=== PATIENT | male | born 1950 | race Caucasian/White ===

== ENCOUNTER 2019-07-23 20:00 | Inpatient (IN) ==
--- NOTE | 2019-07-23 21:23 | Diag Imaging Result Doc PS360 ---
EXAM: CT HEAD W/O CONTRAST INDICATION: R hand and facial numbness, diff standing. TECHNIQUE: This exam was performed using automated exposure control, adjustment of mA or kV according to patient size, and/or use of iterative reconstruction technique. COMPARISON: 06/01/2018 FINDINGS: There is a small chronic lacunar infarct involving the left cerebellar hemisphere. There is no definite acute infarct given the limited sensitivity of CT versus MRI. There is no discrete intracranial mass, mass effect, or intracranial hemorrhage. The surrounding soft tissues and bony structures are essentially unremarkable. IMPRESSION: Stable CT head with no definite acute intracranial pathology by CT. Electronically signed by Albert De Luna 07/23/2019 9:21 PM
[2019-07-23 21:36] LABS: BASO# 0.06 X1000 (0.0-0.2); BASO% 0.6 % (0.0-0.8); EOS# 0.48 X1000 (0.0-0.7); EOS% 4.9 % (0.0-10.0); HEMATOCRIT 41.8 % (42.0-52.0); HEMOGLOBIN 14.2 g/dL (14.0-18.0); IMM GRAN# 0.01 X1000 (0.0-0.04); IMM GRAN% 0.1 % (0.0-0.5); LYMPH# 3.15 X1000 (1.2-3.4); LYMPH% 31.9 % (20.5-51.1); MCH 32.9 PG (27-31); MCV 96.8 FL (81-99); MONO# 1.76 X1000 (0.11-0.59); MONO% 17.8 % (1.7-9.3); MPV 11.1 FL (7.4-10.4); NEUT# 4.43 X1000 (1.4-6.5); NEUT% 44.7 % (42.2-75.2); PLT 264 X1000 (130-400); RBC 4.32 XMIL (4.7-6.1); RDW 13.1 % (11.5-14.5); WBC 9.89 X1000 (4.8-10.8)
[2019-07-23 21:51] LABS: AGAP 14; ALBUMIN 4.4 g/dL (3.5-5.0); ALKALINE PHOSPHATASE 94 U/L (32-122); BUN 22 mg/dL (8-22); CALCIUM 9.2 mg/dL (8.8-10.2); CHLORIDE 108 mmol/L (98-107); COSMO 286; ESTIMATED GFR > 60; GLUCOSE 85 mg/dL (70-104); GOT 39 U/L (10-34); GPT 59 U/L (10-44); INR 1.1; POTASSIUM 4.1 mmol/L (3.5-5.1); PROTIME 14.8 Seconds (11.0-16.0); SODIUM 142 mmol/L (136-145); TCO2 20 mmol/L (25-35); TOTAL PROTEIN 7.3 g/dL (6.3-8.3)
[2019-07-23 21:52] LABS: PTT 30.6 Seconds (22.3-41.8)
--- NOTE | 2019-07-23 23:34 | EKG Report ---
Test Performed on : 07/23/2019 9:01:15 PM Test Reason : stroke symptoms Blood Pressure : / mmHG Vent. Rate : 053 BPM Atrial Rate : 053 BPM P-R Int : 158 ms QRS Dur : 092 ms QT Int : 454 ms P-R-T Axes : 008 -11 018 degrees QTc Int : 426 ms Sinus bradycardia. Minimal voltage criteria for LVH, may be normal variant Borderline ECG When compared with ECG of 01-JUN-2018 12:40, premature ventricular complexes. are no longer present Unconfirmed Result
[2019-07-24] MEDS ORDERED: RESTORIL PO ONE (02:12)
[2019-07-24] MEDS: NS 1,000 ML IV SCH ×3 (05:00→20:22)
--- NOTE | 2019-07-24 05:15 | PROVIDER DOCUMENTATION ---
This chart was entered by Shannon Marroquin Scribe, acting as scribe for Divina Morales DO. HPI-Neurological Disorder - General Chief Complaint: Stroke-Like Symptoms Stated Complaint: FACE NUMB, CAN'T STAND Time Seen by Provider: 07/23/19 20:15 Source: patient Allergies/Adverse Reactions: Patient Allergies Allergy/AdvReac Type Severity Reaction Status Date / Time No Known Allergies Allergy Verified 07/23/19 20:09 Home Medications: Home Medication List Medication Instructions Recorded Confirmed Last Taken Type Bupropion [Wellbutrin] 150 mg PO QAM 06/01/18 06/01/18 Unknown History Clopidogrel Bisulfate [Plavix] 75 mg PO DAILY 06/01/18 06/01/18 Unknown History Metoprolol [Lopressor] 25 mg PO BID 06/01/18 06/01/18 Unknown History Niacin 500 mg PO DAILY 06/01/18 06/01/18 Unknown History PRAVAstatin [Pravachol] 80 mg PO DAILY 06/01/18 06/01/18 Unknown History Tamsulosin HCl 0.4 mg PO DAILY 06/01/18 06/01/18 Unknown History Temazepam 30 mg PO HS 06/01/18 06/01/18 Unknown History Aspirin 325 mg PO DAILY tablet 06/02/18 Unknown Rx - History of Present Illness-Neuro Nature of Presenting Problem: pt is a 68 yr old male presenting with resolved complaint of right facial numbness and dizziness. He also states visual changes but is unable to specify and does not know if it was one or both eyes. 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 pt denies any headache, slurred speech, no other complaints. He states multiple previous "TIAs". 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 denies: impaired speech, facial droop Character of Altered Mental Status: reports: N/A Any recent trauma/injury?: reports: none Character of Deficits: reports: altered sensation (right face) New weakness or altered sensation location:: reports: right facial Cognitive Baseline: alert, oriented x3 Gait Baseline: walks without assistance Associated Symptoms: reports: dizziness. denies: headache, decreased ability to walk or stand, numbness in legs/feet, slurred speech, tingling in legs/feet, trouble walking Similar Symptoms Previously?: No Recently seen or treated by another doctor?: No Review of Systems - Adult - REVIEW OF SYSTEMS - ADULT Constitutional: denies: fever, fatique Eyes: denies: blurred vision, double vision Ears, Nose, Mouth & Throat: denies: ear pain, sinus problem, throat pain Cardiovascular: denies: chest pain, palpitations, syncope Respiratory: denies: cough, shortness of breath Gastrointestinal: denies: abdominal pain, diarrhea, nausea, vomiting Genitourinary: reports: no symptoms reported Musculoskeletal: denies: frequent leg cramps, muscle aches, muscle weakness Integumentary: reports: no symptoms reported Neurological: reports: dizziness/vertigo, numbness (right face). denies: headache/migraines, seizure, slurred speech, syncope Psychiatric: reports: no symptoms reported Endocrine: reports: no symptoms reported Hematologic/Lymphatic: reports: no symptoms reported Allergic/Immunologic: reports: no symptoms reported All Other Systems: Reviewed and Negative Past History - Adult - PAST MEDICAL HISTORY-ADULT Review of Records: reports: Nursing Assessment Review, Medications Reviewed, Social history reviewed & non-contributory. Major Childhood Illnesses: reports: denies history Cardiovascular: reports: HTN, [place] Respiratory: reports: denies history Gastrointestinal: reports: denies history Obstetrical/Gynecological: reports: denies history Genitourinary: reports: denies history Musculoskeletal: reports: denies history Neurological: reports: denies history Endocrine/Immune: reports: denies history Other Conditions: reports: denies history - PRIOR SURGERIES/PROCEDURES Surgical/Procedure History: reports: cholecystectomy - IMMUNIZATION STATUS Childhood Immunizations: See Nurse Assessment Flu Vaccine: See Nurse Assessment - FAMILY HISTORY Family History: reviewed, not pertinent - SOCIAL HISTORY Smoking: non-smoker Substance Use: denies Living Situation: family Physical Exam- Neurological - Physical Exam-Neuro Initial Vital Signs Reviewed: Yes General Appearance: appears well, alert, no apparent distress Eye Exam: bilateral eye: normal inspection, PERRL HENMT: normocephalic/atraumatic, moist mucous membranes, normal ENT inspection Head Injury: no evidence of injury Neck: non-tender, full range of motion, supple, normal inspection Respiratory: lungs clear, normal breath sounds Cardiovascular: normal peripheral pulses, regular rate, rhythm, no edema Abdominal Exam: normal bowel sounds, non tender, soft Lymphatic: no adenopathy Extremity: normal range of motion, non-tender, normal gait, normal 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 NORMAL MOVEMENT OF TONGUE. GAG INTACT.). negative: aphasia, facial droop, focal weakness, motor weakness, sensory deficit Integumentary: normal color, normal turgor, warm/dry Psych/Mental Status: normal mood/affect, normal thought content, normal thought process, oriented x 3 - Glascow Coma Scale Best Eye Response: (4) open spontaneously Best Verbal Response: (5) oriented Best Motor Response: (6) obeys commands Total Glascow Score: 15 Progress - PLAN OF CARE/RESULTS Progress/Plan/Lab Results: Vital Signs - 8 hr 07/24/19 02:22 07/24/19 03:52 Blood Pressure 125/73 126/80 Laboratory Results - last 24 hr 07/23/19 07/23/19 07/23/19 21:16 21:16 21:16 WBC 9.89 RBC 4.32 L Hgb 14.2 Hct 41.8 L MCV 96.8 MCH 32.9 H MCHC 34.0 RDW Std Deviation 13.1 Plt Count 264 MPV 11.1 H Immature Gran % (Auto) 0.1 Neut % (Auto) 44.7 Lymph % (Auto) 31.9 Mason % (Auto) 17.8 H Eos % (Auto) 4.9 Baso % (Auto) 0.6 Immature Gran # (Auto) 0.01 Neut # (Auto) 4.43 Lymph # (Auto) 3.15 Mason # (Auto) 1.76 H Eos # (Auto) 0.48 Baso # (Auto) 0.06 PT INR PTT (Actin FS) Sodium 142 Potassium 4.1 Chloride 108 H Carbon Dioxide 20 L Anion Gap 14 BUN 22 Creatinine 1.0 Estimated GFR/1.73 m2 > 60 BUN/Creatinine Ratio 22 Glucose 85 Calculated Osmolality 286 Calcium 9.2 Total Bilirubin 1.00 AST 39 H ALT 59 H Alkaline Phosphatase 94 Troponin T High Sens < 6 Total Protein 7.3 Albumin 4.4 Globulin 3.0 Albumin/Globulin Ratio 2.0 07/23/19 21:16 WBC RBC Hgb Hct MCV MCH MCHC RDW Std Deviation Plt Count MPV Immature Gran % (Auto) Neut % (Auto) Lymph % (Auto) Mason % (Auto) Eos % (Auto) Baso % (Auto) Immature Gran # (Auto) Neut # (Auto) Lymph # (Auto) Mason # (Auto) Eos # (Auto) Baso # (Auto) PT 14.8 INR 1.10 PTT (Actin FS) 30.6 Sodium Potassium Chloride Carbon Dioxide Anion Gap BUN Creatinine Estimated GFR/1.73 m2 BUN/Creatinine Ratio Glucose Calculated Osmolality Calcium Total Bilirubin AST ALT Alkaline Phosphatase Troponin T High Sens Total Protein Albumin Globulin Albumin/Globulin Ratio Orders Category Date Time Status Admit [facility] Routine AdmDCTranf 07/24/19 01:41 Active Admit [facility] Routine AdmDCTranf 07/24/19 01:43 Active Admit [facility] Routine AdmDCTranf 07/24/19 01:43 Active Activity - Up Ad Noreen ORDERED Care 07/24/19 01:43 Active Neurological Check Q2H Care 07/24/19 01:43 Active Resuscitation Status Routine Care 07/24/19 01:43 Ordered Saline Loc DIRECTED Care 07/24/19 01:43 Active Vital Signs Order ROUTINE Care 07/24/19 01:43 Active Heart Healthy Diet Diet 07/24/19 01:[address] HEAD W/O CONTRAST [CT] Stat Exams 07/23/19 20:16 Completed CTA [CT ANGIOGRAM HEAD/NECK] [CT] Stat Exams 07/23/19 20:54 Taken CBC WITH DIFF [HEME] Stat Lab 07/23/19 21:16 Completed COMPREHENSIVE METABOLIC PANEL [CHEM] Stat Lab 07/23/19 21:16 Completed PROTIME WITH INR [COAG] Stat Lab 07/23/19 21:16 Completed PTT [COAG] Stat Lab 07/23/19 21:16 Completed TROPONIN T HIGH SENSITIVITY Stat Lab 07/23/19 21:16 Completed Temazepam [Restoril] Med 07/24/19 02:12 Discontinued 15 mg PO NOW ONE EKG [EKG] Stat Ther 07/23/19 20:16 Draft Echo Spec/Color Doppler Routine Ther 07/24/19 02:13 Ordered Transfer/Admit Order [TRANSFER] Routine Transfer 07/24/19 04:13 Ordered Clinically stable under my care. He was rapidly sent for non con head CT upon arrival. This was WNL. NIH stroke scale 0 on arrival. On repeat exam he had no further dizziness or any symptoms whatsoever. CTA head and neck obtained showing no vascular occlusions. He was admitted and will have an echo performed. he was able to ambulate without any difficulty. Result Diagrams: 07/23/19 21:16 07/23/19 21:16 - CT/MRI 1 CT Study: Head Impression: Abnormal ( Signed EXAM: CT HEAD W/O CONTRAST INDICATION: R hand and facial numbness, diff standing. TECHNIQUE: This exam was performed using automated exposure control, adjustment of mA or kV according to patient size, and/or use of iterative reconstruction technique. COMPARISON: 06/01/2018 FINDINGS: There is a small chronic lacunar infarct involving the left cerebellar hemisphere. There is no definite acute infarct given the limited sensitivity of CT versus MRI. There is no discrete intracranial mass, mass effect, or intracranial hemorrhage. The surrounding soft tissues and bony structures are essentially unremarkable. IMPRESSION: Stable CT head with no definite acute intracranial pathology by CT. Electronically signed by Albert De Luna 07/23/2019 9:21 PM 07/23/192120 Interpreting Physician: Albert De Luna MD Dictated Date/Time: 07/23/192117 cc: Divina Morales DO; None,PCP) Comparison with other Films: no changes Departure - Departure Date of Disposition Decision: 07/24/19 Time of Disposition Decision: 00:30 DIAGNOSIS: TIA (transient ischemic attack) Disposition: ADMITTED INPATIENT 09 Certified Medical Emergency: Emergent Condition: Fair - Critical Care Note This patient required my direct & personal management of CC.: No Attestation - Physician/ LYNDSAY Attestation The physician spent face to face time with patient:: Yes Advanced Practice Provider documentation review:: Supervising physician onsite and consulted in the evaluation and care of this patient. The physician did have a face to face encounter with the patient. - NIH Stroke Scale Level of Consciousness: 0-Alert LOC Questions (ask month and age): 0-Answers Both Correctly LOC Commands (ask to open & close eyes;make a fist, let go): 0-Obeys Both Correctly Best Gaze (horizontal eye movement): 0-Normal Visual (use finger movement, counting or visual threat): 0-No Visual Loss Facial Palsy (show teeth or raise eyebrows & close eyes tght: 0-Symmetrical Movement Motor Function-left arm: 0-Normal Motor Function-right arm: 0-Normal Motor Function-left le-Normal Motor Function-right le-Normal Limb Ataxia(qorzep-wpmo-cqpbbi, or heel to carroll): 0-No Ataxia Sensory(pin prick to face,arms,trunk,legs-compare side/side): 0-No Ataxia Best Language(name item/read sentence.Ex-Down to Earth): 0-No Aphasia Dysarthria(Pt read words or say words Ex.Mama,Tip-Top,Thanks: 0-Normal Articulation Extinction and Inattention: 0-Normal Modified [place] Score Criteria: 0-no symptoms This chart was documented by the indicated scribe, (Shannon Marroquin, Scribe) and accurately reflects the services I performed and decisions made by , Divina Morales DO, as attested by the provider's signature.
--- NOTE | 2019-07-24 11:04 | Vascular Study Report ---
EXAM: Carotid Ultrasound HISTORY: TIA vs CVA TECHNIQUE: Grayscale, duplex, and color Doppler evaluation was performed of the carotid arteries bilaterally. Standard protocol. COMPARISON: None. FINDINGS: There is no significant atherosclerotic plaque. There are no velocity elevations to suggest hemodynamically significant carotid artery stenosis. Maximal velocity is within the proximal left internal carotid artery at 66 cm/s. ICA/CCA ratios are within normal limits. Bilateral vertebral arterial flow is antegrade. IMPRESSION: No evidence for hemodynamically significant carotid artery stenosis. Estimated stenosis is less than 50% bilaterally. Electronically signed by Yue Abdi 07/24/2019 11:01 AM
[2019-07-24] MEDS ORDERED: PLAVIX PO ONE (11:38)
[2019-07-24] MEDS ORDERED: ASPIRIN PO ONE (11:38)
--- NOTE | 2019-07-24 14:20 | HISTORY AND PHYSICAL ---
PRIMARY CARE PHYSICIAN: Listed as none. CHIEF COMPLAINT: Numbness to the right side of his face, tongue, lips and right hand that began approximately 45 minutes prior to arriving. HISTORY OF PRESENTING ILLNESS: This is a 68-year-old male who presents to [facility] ER with complaints of right-sided facial numbness and dizziness, visual changes that began about 45 minutes prior to arriving but had resolved by the time he did arrive to the ER. States that this occurred while he was driving. He is noted to have multiple TIAs in the past. His workup showed a head CT that was a stable CT of the head with no definite acute intracranial pathology by CT, but he was admitted for further evaluation and treatment. PAST MEDICAL HISTORY: TIA x4, [place] in 2005, hypertension, BPH, hypercholesterolemia, hemolytic anemia, and a left carotid stenosis. PAST SURGICAL HISTORY: Cholecystectomy, splenectomy. FAMILY HISTORY: His father is with a history of emphysema and CAD. Mother is with a history of hemolytic anemia, blood clots, and CAD. Older brother and younger sister both have a history of diabetes. SOCIAL HISTORY: Currently lives with family. Denies tobacco use, alcohol use, or illicit drug use. ALLERGIES: He has no known drug allergies. HOME MEDICATIONS: A current list will need to be obtained, reconciled, reviewed and restarted as appropriate, will place an order for nursing to update and confirm home medications. LABORATORY DATA: Showed a white blood cell count of 9.89, hemoglobin 14.2, hematocrit 41.8, platelets 264,000. PT and INR of 14.8 and 1.10. Sodium 142, potassium 4.1 chloride 108, CO2 20, BUN of 22, creatinine 1, glucose 85. CT of the head showed a stable CT of the head with no definite acute intracranial pathology. EKG showed sinus bradycardia at 53. REVIEW OF SYSTEMS: He denied any fever, chills, blurred vision. He was positive for some dizziness, weakness, vertigo. Denied any chest pain, coughing, shortness of breath. Denied any abdominal pain, constipation, diarrhea, burning or hurting with urination. He did also have a headache. PHYSICAL EXAMINATION: On arrival he had a temperature of 97.3 degrees, pulse 54, respirations 18, blood pressure 104/74, saturating 96% on room air. GENERAL: This is a 68-year-old male, appearing chronically ill, lying in the bed and answers questions appropriately. HEENT: Normocephalic, atraumatic. Normal ENT inspection. Oropharynx and nares are clear. EYES: Pupils are equal, round, reactive to light and accommodation. Extraocular movements are intact. NECK: Normal inspection, normal range of motion. LUNGS: Clear to auscultation bilaterally with equal lung expansion, chest wall movement. HEART: Regular rate and rhythm. No murmurs, rubs, or gallops. ABDOMEN: Soft, nontender, nondistended. Bowel sounds are present x4 quadrants. MUSCULOSKELETAL: He had 5/5 strength x4 extremities. NEUROLOGICAL: The cranial nerves 2-12 appear grossly intact. ASSESSMENT: Transient ischemic attack versus cerebrovascular accident. PLAN: He is being admitted to the medical unit placed on telemetry, healthy heart diet. We are going to check an MRI of the brain with and without contrast. Do a CTA of head and neck. Check an echocardiogram and carotid Doppler. Normal saline at 125 mL an hour. We will go ahead and give him a now dose of aspirin and Plavix until we can verify all of his home medications, but he is on those medications at home and neuro checks q.2 hours for 24 hours per the stroke protocol and further orders after seen by attending. Dictated by DOLLY Smith for Camacho Browne MD cc: DOLLY Smith MD
--- NOTE | 2019-07-24 14:56 | Diag Imaging Result Doc PS360 ---
MRI BRAIN W/WO CONTRAST - 07/24/2019 INDICATION: stroke COMPARISON: 07/23/2019, 06/01/2018 FINDINGS: The ventricles and sulci are normal in size and contour. No intracranial mass or hemorrhage. There is no abnormal contrast enhancement. There are a couple of stable, very faint foci of increased white matter hyperintensity in the periventricular white matter. No new signal abnormalities. Midline structures are unremarkable. IMPRESSION: No acute disease or change from prior. Minimal nonspecific white matter hyperintensities of doubtful significance. Electronically signed by Henok Bautista 07/24/2019 2:53 PM
--- NOTE | 2019-07-24 15:06 | Diag Imaging Result Doc PS360 ---
EXAM: CT ANGIOGRAM HEAD/NECK HISTORY: difficulty standing. R sided numbness TECHNIQUE: This exam was performed using automated exposure control, adjustment of mA or kV according to patient size, and/or use of iterative reconstruction technique. 3-D postprocessing with MIPS. COMPARISON: None. FINDINGS: Preliminary interpretation was given by [facility] teleradiology. Poor arterial opacification limits interpretation. The visualized aorta shows no evidence for aneurysm or dissection. Grossly patent subclavian, common carotid, and internal carotid arteries. No focal stenosis is appreciated. Intracranial vessels appear grossly patent although again evaluation is limited. Visualized lung hughes and soft tissues are unremarkable. IMPRESSION: Limited evaluation. No definitive stenosis or occlusion. Electronically signed by Yue Abdi 07/24/2019 3:04 PM
--- NOTE | 2019-07-24 18:33 | ECHO REPORT ---
ORDER DATE: 07/24/2019 INDICATIONS: TIA. FINDINGS: 1. The right atrium is normal in size at 3.5 cm. 2. Mild tricuspid regurgitation. RV systolic pressure of 33. 3. Normal RV size and systolic function. 4. Moderate pulmonic insufficiency. 5. Mild left atrial enlargement with a volume index of 33. 6. No mitral valve prolapse. Mild mitral regurgitation. No evidence of mitral stenosis. 7. Normal LV size, end-diastolic dimension of 4.6 cm. Normal wall thicknesses with a posterior and interventricular septal wall thickness is 0.9 cm each. Normal LV systolic function. Estimated EF is 60%. 8. Aortic valve opens well. No evidence of stenosis or insufficiency. 9. Aorta appears normal in visualized segments. 10. No pericardial effusion is identified. 11. Diastolic function appears normal. cc: MD Divina Barnett DO
--- NOTE | 2019-07-24 20:25 | HISTORY AND PHYSICAL ---
ADDENDUM: Patient seen and examined by myself. Full note dictated and discussed with nurse practitioner. The patient presented to the hospital with a history of TIAs four times in the past. This time he presented with dizziness, right facial numbness and notes that his symptoms have improved but not completely resolved. We are going to admit him to the hospital and check follow his labs. Further orders as needed. Please see full note. cc: Camacho Browne MD MTDD
[2019-07-24] MEDS ORDERED: RESTORIL PO SCH (22:45)
[2019-07-25] MEDS: NS 1,000 ML IV SCH (04:35)
[2019-07-25 07:54] VITALS: BP 134/84
[2019-07-25] MEDS ORDERED: TOPROL XL PO SCH (09:00)
[2019-07-25] MEDS ORDERED: ASPIRIN PO SCH (09:00)
[2019-07-25] MEDS ORDERED: BUSPAR PO SCH (09:00)
[2019-07-25] MEDS ORDERED: PROSCAR PO SCH (09:00)
[2019-07-25] MEDS ORDERED: WELLBUTRIN PO SCH (09:00)
--- NOTE | 2019-07-25 11:17 | DISCHARGE SUMMARY ---
ADMISSION DATE: 07/24/2019 DISCHARGE DATE: PRIMARY CARE PHYSICIAN: Listed as none. ADMISSION DIAGNOSIS: Transient ischemic attack versus cerebrovascular accident. DISCHARGE DIAGNOSIS: Transient ischemic attack. SUMMARY OF FINDINGS: This is a 68-year-old male who presented to the ER with complaints of right- sided facial numbness and dizziness and visual changes that began around 45 minutes prior to arriving but resolved by the time he arrived to the ER. He states that these symptoms occurred while he was driving and has had 4 previous TIAs in the past. Had been on aspirin and Plavix. States he had been taking his medications as prescribed. Workup showed a head CT that was stable, head and neck CT that showed no definite stenosis or occlusion. We did a brain MRI that showed no acute disease or change from prior with minimal nonspecific white matter hyperintensities of doubtful significance. Carotid Doppler showed no evidence of hemodynamically significant carotid artery stenosis estimated at less than 50% bilaterally, so it is now felt that he can be discharged home, but with the findings of a TIA multiples on aspirin and Plavix, we are going to place him on Xarelto 10 mg p.o. daily. OTHER DISCHARGE MEDICATIONS: 1. Aspirin 325 mg p.o. daily. 2. Atorvastatin 80 mg p.o. at bedtime. 3. Bupropion 200 mg p.o. daily. 4. Buspirone 30 mg p.o. b.i.d. 5. Finasteride 5 mg p.o. daily. 6. Metoprolol 50 mg p.o. daily. 7. Temazepam 15 mg p.o. at bedtime. FOLLOWUP: He will follow up with primary care physician in 1 to 2 weeks but we will need to give him the physician referral line for obtaining a primary care physician. All discharge instructions have been reviewed with the patient and he verbalized understanding. TIME SPENT AT DISCHARGE: A 35 minute discharge. Dictated by DOLLY Smith for Camacho Browne MD cc: DOLLY Smith MD
--- NOTE | 2019-07-25 20:57 | DISCHARGE SUMMARY ---
ADMISSION DATE: 07/24/2019 DISCHARGE DATE: 07/25/2019 Patient seen and examined by myself. See full note dictated by my nurse practitioner. Patient admitted with TIA type symptoms. Thankfully they resolved. His carotid stenosis is less than 50% bilaterally. We did switch him from Plavix to Xarelto as he states he has had five episodes while on Plavix. He will follow up outpatient with his primary care. cc: Camacho Browne MD
[2019-07-25] MEDS ORDERED: LIPITOR PO SCH (21:00)
[2019-07-26] MEDS ORDERED: XARELTO PO SCH (06:00)
== END 2019-07-25 12:10 | disposition home or self-care (01) | DRG 69 ==
LOC: P.ED 20:00 → P.EDIPHOLD 07-24 04:45 → SUATTDRO 07-24 04:45 → P.MEDSURG 07-24 06:57
PROVIDERS: ATTEND Family Medicine